=== PATIENT | female | born 1980 | race Caucasian/White ===

== ENCOUNTER 2018-12-09 12:42 | Emergency (ER) | payer SELFPAY ==
[~2018-12-09] VITALS: Ht 152.4 cm; Wt 50.0 kg
[~2018-12-09 12:42] MED LIST: NO HOME MEDS
[2018-12-09] MEDS ORDERED: MOTRIN 400400 MG/TAB PO (12:54)
[2018-12-09 12:55] VITALS: BP 127/67; PULSE 69; TEMP 99.4
== END 2018-12-09 15:45 | disposition left against medical advice (07) ==
LOC: COL.ER 12:42
DX: M25.511 Pain in right shoulder (principal)

== ENCOUNTER 2019-11-16 18:03 | Emergency (ER) | payer SELFPAY ==
[~2019-11-16] VITALS: Ht 152.4 cm; Wt 48.2 kg
[~2019-11-16 18:03] MED LIST changes: +MOTRIN 400400 MG/TAB PO
[2019-11-16 18:09] VITALS: BP 125/83; TEMP 99
[2019-11-16 19:18] LABS: COLLECTION METHOD CLEAN CATCH
[2019-11-16 19:21] LABS: BASO # 0.1 (0.0-0.2); BASO % 0.7 % (0.0-2.0); EOS # 0.2 (0.0-0.7); EOS % 2.1 % (0-4.0); GRAN # 5.6 (1.4-6.5); GRAN % 65.9 % (42.2-75.2); HEMATOCRIT 40.6 % (37.0-47.0); HEMOGLOBIN 13.6 g/dl (12.5-16.0); LYMPH # 2.3 (1.2-3.4); LYMPH % 26.8 % (20.0-51.0); MEAN CELL VOLUME 95 fl (80.0-100.0); MEAN CORPUSCULAR HEMOGLOBIN 32 pg (27.0-31.0); MEAN CORPUSCULAR HGB CONC 34 g/dl (33.0-37.0); MEAN PLATELET VOLUME 10.2 fl (7.4-10.4); MONO # 0.4 (0.1-0.6); MONO % 4.4 % (1.7-9.3); PLATELET COUNT 225 K/mm3 (130-400); RED BLOOD COUNT 4.28 M/mm3 (4.10-5.30); REDCELL DISTRIBUTION WIDTH-CV 12.3 % (11.5-14.5)
[2019-11-16 19:30] LABS: ALBUMIN 4.3 gm/dL (3.5-5.0); BILIRUBIN,TOTAL 0.6 mg/dL (0.0-1.0); CALCIUM 9.5 mg/dL (8.4-10.2); CREATININE, serum 0.64 (0.52-1.25); POTASSIUM 3.3 mmol/L (3.4-5.0); TOTAL PROTEIN 7.5 gm/dL (6.4-8.2)
[2019-11-16 19:30] LABS: PH 6 (5-8); SQUAMOUS EPITHELIAL 0-2 /hpf; URINE APPEARANCE Clear; URINE BACTERIA None Seen /hpf; URINE BILIRUBIN Negative (NEGATIVE); URINE BLOOD 3+ (NEGATIVE); URINE COLOR Straw; URINE GLUCOSE Negative (NEGATIVE); URINE KETONE Negative (NEGATIVE); URINE LEUKOCYTE ESTERASE 2+ (NEGATIVE); URINE NITRATE Negative (NEGATIVE); URINE PROTEIN(semi-quant) Negative (NEGATIVE); URINE RBC 0-2 /hpf; URINE UROBILINOGEN Negative (NEGATIVE)
[2019-11-16] MEDS ORDERED: MACROBID 1100 MG/CAP PO (20:07)
[2019-11-16 20:51] LABS: ERYTHROCYTE SEDIMENTATION RATE 4 mm/hr (0-20)
[2019-11-16 21:01] VITALS: PULSE 90
== END 2019-11-16 21:00 | disposition home or self-care (01) ==
LOC: COL.ER 18:03
PROVIDERS: Nurse Practitioner Primary Care
DX: M79.605 Pain in left leg (principal); M79.604 Pain in right leg; N39.0 Urinary tract infection, site not specified; F17.210 Nicotine dependence, cigarettes, uncomplicated; Z90.49 Acquired absence of other specified parts of digestive tract; Z90.89 Acquired absence of other organs
CPT/HCPCS: J7030